=== PATIENT | male | born 1980 | race Caucasian/White ===

== ENCOUNTER 2019-08-16 15:33 | Outpatient (CLI) | payer MEDICAID, SELFPAY ==
--- NOTE | 2019-08-16 | XR_ITS ---
WS: [id number] SACRUM AND COCCYX TECHNIQUE: AP angled and lateral views. HISTORY: SACROCOCCYGEAL PAIN COMPARISON: 06/14/2014 Bone island LEFT ilium. No fracture or malalignment. Visualized bony structures are unremarkable. XR/XR sacrum coccyx min 2V [id number] IMPRESSION: Negative sacrum and coccyx.
== END 2019-08-16 15:34 | disposition home or self-care (01) ==
LOC: RADOUTREAD 08-17 07:29
PROVIDERS: Family Provider Physician Assistant; Visit Provider Nurse Practitioner Family
DX: M53.3 Sacrococcygeal disorders, not elsewhere classified (principal)

== ENCOUNTER 2019-08-23 09:47 | Outpatient (CLI) | payer MEDICAID, SELFPAY ==
--- NOTE | 2019-08-23 | XR_ITS ---
WS: [id number] LUMBAR SPINE: 6 VIEWS TECHNIQUE: AP, lateral, and L5-S1 spot. Lateral views in neutral, flexion and extension. HISTORY: SCIATICA LEFT SIDE COMPARISON: 06/14/2014 5 lumbar type vertebral bodies. Normal lumbar alignment. Small endplate osteophyte at L5. With flexio n and extension there is no instability. Mild disc space narrowing at L5-S1. SI joints are normal. No soft tissue abnormalities. XR/XR lumbar spine min 4V [id number] IMPRESSION: 1. No lumbar spine instability. 2. Mild spondylosis at L5-S1.
== END 2019-08-23 09:48 | disposition home or self-care (01) ==
PROVIDERS: Family Provider Physician Assistant; Visit Provider Physician Assistant
DX: M54.32 Sciatica, left side (principal)

== ENCOUNTER 2021-03-08 15:53 | Outpatient (CLI) | payer MEDICAID, SELFPAY ==
--- NOTE | 2021-03-08 14:30 | XRR_ITS ---
PROCEDURE INFORMATION: Exam: XR Abdomen Exam date and time: 03/08/2021 2:30 PM Age: 40 years old Clinical indication: Condition or disease; Kidney or ureter condition; Calculus (stone) in kidney; Additional info: Kidney stones TECHNIQUE: Imaging protocol: XR of the abdomen. Views: Frontal supine view of the abdomen. 1 View. COMPARISON: CR XR abdomen min 2V [id number] 02/26/2021 11:37 AM FINDINGS: Gastrointestinal tract: Normal. No bowel dilation. Bones/joints: Unremarkable. Other findings: No radiographic evidence of nephrolithiasis. XR/XR KUB [id number] IMPRESSION: 1. No acute findings. 2. No radiographic evidence of nephrolithiasis.
== END 2021-03-08 15:54 | disposition home or self-care (01) ==
LOC: RAD 15:56
PROVIDERS: PCP Physician Assistant; Visit Provider Urology
DX: N20.0 Calculus of kidney (principal)
CPT/HCPCS: 74018; 81003; 87086

== ENCOUNTER 2021-03-12 08:02 | Outpatient (CLI) | payer MEDICAID, SELFPAY ==
--- NOTE | 2021-03-12 08:00 | CT_ITS ---
WS: [id number] CT ABDOMEN PELVIS TECHNIQUE: Noncontrast CT of the abdomen and pelvis with coronal and sagittal reformatted images. CLINICAL INFORMATION: KIDNEY STONE COMPARISON: CTA chest and CT abdomen pelvis May 2018 DLP: 2294.[address] scans at [facility] use at least one of these dose optimization techniques: automat ed exposure control; mA and/or kV adjustment per patient size (includes targeted exams where dose is matched to clinical indication); or iterative reconstruction. FINDINGS: Previously described left UVJ calculus has resolved. No hydronephrosis in the left kidney. Left urete r is decompressed. A few tiny nonobstructing left calyceal tip calculi. No hydronephrosis in right kidney. Right ureter is decompressed. A few tiny right nonobstructing cristian ceal tip calculi. Lung bases are well aerated. Normal noncontrast liver. Normal noncontrast gallbladder. Adrenal glands are normal. Noncontrast spleen is normal. Food products in the distended stomach. No evidence of sma ll or large bowel obstruction. Noncontrast pancreas appears normal. Normal caliber abdominal aorta. Normal sigmoid colon. No free fl uid in the abdomen or pelvis. No abdominal or pelvic lymphadenopathy. Tiny fat-containing umbilical h ernia. CT/CT kidney stone [id number] IMPRESSION: 1. No obstructing renal or ureteral calculi. 2. Previously described left UVJ calculus has resolved. 3. A few tiny nonobstructing calyceal tip calculi bilaterally. 4. Mild hepatomegaly. 5. No evidence of small or large bowel obstruction. 6. No other significant findings.
== END 2021-03-12 08:03 | disposition home or self-care (01) ==
LOC: RAD 08:04
PROVIDERS: PCP Physician Assistant; Visit Provider Nurse Practitioner Family
DX: N20.0 Calculus of kidney (principal); R16.0 Hepatomegaly, not elsewhere classified
CPT/HCPCS: 74176; 81003

== ENCOUNTER 2021-09-04 12:12 | Outpatient (CLI) | payer MEDICAID, SELFPAY ==
[2021-09-04 12:45] VITALS: BMI 38.4
--- NOTE | 2021-09-04 12:46 | ECG_ITS ---
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 Interpretive Statements NAME OF STUDY: TREADMILL STRESS TEST INDICATION: Dyspnea on Exertion Baseline blood pressure of 136/92 mm Hg, heart rate of 77 beats per minute and oxygen saturation 97%. EKG showed normal sinus rhythm, normal axis with normal ST-Ts. The patient exercised for 6 minutes 42 seconds on a standard Baltazar protocol. Patient attained a maximum heart rate of 140 beats per minute(78% of the maximum predicted heart rate) with a blood pressure at the peak exercise of 168/89 mm Hg and oxygen saturation 97%. The EKG at the peak exercise revealed sinus tachycardia with no significant ST-T wave changes. Patient did not have any chest pain or any significant arrhythmis with the exercise During the recovery phase, there were no new changes. Blood pressure at the end of the recovery phase was 148/85 mm Hg with a heart rate of 98 beats per minute and oxygen saturation 97%. CONCLUSION: 1. Normal EKG response to treadmill exercise. 2. No exercise-induced chest pain or cardiac arrhythmia. 3. Excellent exercise tolerance, attained a maximum of 10.2 METs. Maximum VO2 of 35.7 mL/kg/min. 4. Baseline hypertension with normal response to exercise. 5. Garland treadmill score of ~7 suggestive of low risk. 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 [id number]
[2021-09-04 13:58] VITALS: BP 148/85; PULSE 98
== END 2021-09-04 12:13 | disposition home or self-care (01) ==
LOC: CDL 12:13
PROVIDERS: PCP Physician Assistant; Visit Provider Physician Assistant
DX: R06.00 Dyspnea, unspecified (principal); R06.02 Shortness of breath
CPT/HCPCS: 93017

== ENCOUNTER → 2021-10-31 15:37 | Outpatient (BNVA) | payer MEDICAID, SELFPAY | PROVIDERS: PCP Physician Assistant; Referring Provider Physician Assistant; Visit Provider Specialist | DX: G56.12 Other lesions of median nerve, left upper limb (principal); M62.89 Other specified disorders of muscle | CPT/HCPCS: 95909 ==

== ENCOUNTER 2022-07-26 09:54 | Outpatient (CLI) | payer MEDICAID, SELFPAY ==
--- NOTE | 2022-07-26 11:45 | MR_ITS ---
WS: [id number] MRI CERVICAL SPINE NONCONTRAST TECHNIQUE: Sagittal T1, T2 and STIR imaging. Axial T2, gradient, and fiesta imaging. CLINICAL INFORMATION: G56.12 - Other lesions of median nerve, left upper limb COMPARISON: 2008 FINDINGS: Straightening of the normal cervical lordosis. Mild cervical curve. Cord signal is normal. Mild spond ylitic changes slightly progressed compared to 2008. Mild disc bulging C5-C6 and C6-C7. C2-C3: Normal. C3-C4: Mild disc bulging with slight effacement of ventral thecal sac. Mild facet arthropathy. Mild R IGHT and no significant LEFT foraminal narrowing. Spinal canal is patent. C4-C5: Mild facet arthropathy. Spinal canal and foramen are patent. C5-C6: Minimal disc bulging. Mild facet arthropathy. Spinal canal and foramen are patent. C6-C7: Shallow central disc protrusion. Mild bilateral foraminal narrowing. Mild facet arthropathy. S ashutosh canal is patent. C7-T1: No significant disc bulging. Spinal canal and foramen are patent. Visualized brain stem structures: Normal. Prevertebral soft tissues: Normal. MR/MR cervical spin wo con* [id number] IMPRESSION: 1. Straightening of the normal cervical lordosis. Cord signal is normal. 2. Mild bony foraminal narrowing RIGHT C3-C4, and bilateral C6-C7. 3. Mild facet arthropathy C3-C4 C4-C5 and C5-C6. 4. No other acute findings.
== END 2022-07-26 09:55 | disposition home or self-care (01) ==
LOC: RAD 09:55
PROVIDERS: PCP Physician Assistant; Visit Provider Specialist
DX: G56.12 Other lesions of median nerve, left upper limb (principal); G43.711 Chronic migraine without aura, intractable, with status migrainosus; M47.812 Spondylosis without myelopathy or radiculopathy, cervical region
CPT/HCPCS: 72141

== ENCOUNTER 2023-10-21 14:51 | Outpatient (CLI) | payer MEDICAID, SELFPAY ==
--- NOTE | 2023-10-21 14:58 | CT_ITS ---
WS: [id number] CT NECK TECHNIQUE: Contrast-enhanced CT of the neck with coronal and sagittal reformatted images. CLINICAL INFORMATION: MASS OF NECK COMPARISON: None. DLP: 281.[address] scans at [facility] use at least one of these dose optimization techniques: automated e xposure control; mA and/or kV adjustment per patient size (includes targeted exams where dose is matc hed to clinical indication); or iterative reconstruction. FINDINGS: Mild soft tissue thickening and irregularity involving the aryepiglottic folds and posterior wall of the hypopharynx at the level of the arytenoid cartilage. Respiratory artifact degrades images in thi s area. Recommend further evaluation with direct visualization. Otherwise no evidence of supraglottic or glottic mass. Parotid glands are normal. Normal submandibular glands. Normal posterior nasopharynx. Normal paraphar yngeal fat. Paranasal sinuses and mastoid air cells are well aerated. Normal parapharyngeal fat. Lung apices are well aerated. Straightening of the normal cervical lordosis. No cervical lymphadenopathy. No evidence of cystic or solid neck mass. IMPRESSION: 1. Normal salivary glands. 2. No cervical lymphadenopathy. 3. Soft tissue thickening at the level of the aryepiglottic folds and posterior wall of the hypophar ynx at the arytenoid cartilage. Recommend endoscopy to evaluate for polypoid lesion in this area. Primo e images at this level are degraded due to beam hardening artifact.
[2023-10-21] MEDS: iohexol 350 mg/mL 500 mL Btl (per mL) IV (15:31)
== END 2023-10-21 14:52 | disposition home or self-care (01) ==
LOC: RAD 14:52
PROVIDERS: PCP Physician Assistant; Visit Provider Electrodiagnostic Medicine
DX: R22.1 Localized swelling, mass and lump, neck (principal); R93.89 Abnormal findings on diagnostic imaging of other specified body structures
CPT/HCPCS: 70491; Q9967

== ENCOUNTER 2023-12-31 09:09 | Outpatient (CLI) | payer MEDICAID, SELFPAY ==
--- NOTE | 2023-12-31 09:12 | MR_ITS ---
WS: [id number] MRI NECK WITH AND WITHOUT CONTRAST. COMPARISON: Neck CT 10/20/2013. Multiplanar, multisequence imaging is performed with and without contrast. MultiHance 20 mL IV. History: Sore throat, feeling of lump in throat for years. Recently described mass and heterogeneity near the aryepiglottic folds at the level of the thyroid ca rtilage is no longer present. There is a symmetric appearance of the airway. The larynx and subglotti c airway is normal. Aryepiglottic folds and vocal cords are normal. There is no area of abnormal enha ncement. The oropharynx and nasopharynx are negative. The entire parapharyngeal soft tissues are not included on the postcontrast evaluation. No cervical chain adenopathy. No central cervical stenosis. MR/MR orbit face neck wo/w* [id number] IMPRESSION: 1. Previously described soft tissue mass at the level of the aryepiglottic fol ds is not identified by MRI. Symmetric appearance of the larynx and subglottic airway. No mass or abnormal enhancement. For confirmation direct visualization may be of benefit. 2. No cervical chain adenopathy.
[2023-12-31] MEDS: gadobenate dimeglumine 20 mL vial IV (10:11)
== END 2023-12-31 09:10 | disposition home or self-care (01) ==
LOC: RAD 09:09
PROVIDERS: PCP Physician Assistant; Visit Provider Specialist
DX: D37.09 Neoplasm of uncertain behavior of other specified sites of the oral cavity (principal)
CPT/HCPCS: 70543; A9577

== ENCOUNTER 2025-03-01 15:33 | Emergency (ER) | payer MEDICAID, SELFPAY ==
[2025-03-01 15:35] VITALS: BP 124/74; PULSE 68; TEMP 36.9; O2SAT 98; BMI 27.1
--- OUTSIDE RECORDS SUMMARY | 2025-03-01 15:37 | XMS_ITS | Patient Health Record ---
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 Name Role Phone Marci Lobo Primary Care Provider UnavailMagaly Ureña Unavailable Allergies Allergen (clinical drug ingredient) Drug/Non Drug Allergy documented on EMR Reaction Allergy Type Onset Date Status Flexeril restless legs Drug Allergy Act nolberto gabapentin Gabapentin memory Drug Allergy Activ e Results Component Value Reference Range Flag Notes Urine Confirmation Panel (in strument) - [id number] Reviewed date:02/23/2025 10:46:36 AM Interpretation: Performing Lab: Notes/Report: 6-Acetylmorphine 0 <6 ng/mL N This suhail t was developed and its performance characteristics determined by [facility]. It has not been cleared or approved by the U.S. Food and Drug Administration. 7-Aminoclonazepam 0 <60 ng/mL N This te st was developed and its performance characteristics determined by [facility]. It has not been cleared or approved by the U.S. Food and Drug Administration. Alprazolam 0 <60 ng/mL N This test was developed and its performance characteristics determined by [facility]. It has not been cleared or approved by the U.S. Food and Drug Administration. Amphetamine 0 <75 ng/mL N This test was developed and its performance characteristics determined by [facility]. It has not been cleared or approved by the U.S. Food and Drug Administration. aOH-Alprazolam 0 <60 ng/mL N This test was developed and its performance characteristics determined by [facility]. It has not been cleared or approved by the U.S. Food and Drug Administration. Buprenorphine 1.0 <7.5 ng/mL N This test w as developed and its performance characteristics determined by [facility]. It has not been cleared or approved by the U.S. Food and Drug Administration. Norbuprenorphine 0.0 <37.5 ng/mL N This te st was developed and its performance characteristics determined by [facility]. It has not been cleared or approved by the U.S. Food and Drug Administration. Carisoprodol 0 <75 ng/mL N This test wa s developed and its performance characteristics determined by [facility]. It has not been cleared or approved by the U.S. Food and Drug Administration. Codeine 0 <75 ng/mL N This test was developed and its performance characteristics determined by [facility]. It has not been cleared or approved by the U.S. Food and Drug Administration. EDDP 0 <75 ng/mL N This test was developed and its performance characteristics determined by [facility]. It has not been cleared or approved by the U.S. Food and Drug Administration. Fentanyl 0 <6 ng/mL N This test was developed and its performance characteristics determined by [facility]. It has not been cleared or approved by the U.S. Food and Drug Administration. Hydrocodone 1 <75 ng/mL N This test was developed and its performance characteristics determined by [facility]. It has not been cleared or approved by the U.S. Food and Drug Administration. Hydromorphone 0 <75 ng/mL N This test w as developed and its performance characteristics determined by [facility]. It has not been cleared or approved by the U.S. Food and Drug Administration. Lorazepam 0 <60 ng/mL N This test was developed and its performance characteristics determined by [facility]. It has not been cleared or approved by the U.S. Food and Drug Administration. MDMA 60 <75 ng/mL N This test was developed and its performance characteristics determined by [facility]. It has not been cleared or approved by the U.S. Food and Drug Administration. Meperidine 0.0 <37.5 ng/mL N This test was developed and its performance characteristics determined by [facility]. It has not been cleared or approved by the U.S. Food and Drug Administration. Meprobamate 0 <75 ng/mL N This test was developed and its performance characteristics determined by [facility]. It has not been cleared or approved by the U.S. Food and Drug Administration. Methamphetamine 0 <75 ng/mL N This test was developed and its performance characteristics determined by [facility]. It has not been cleared or approved by the U.S. Food and Drug Administration. Methadone 0 <75 ng/mL N This test was developed and its performance characteristics determined by [facility]. It has not been cleared or approved by the U.S. Food and Drug Administration. Morphine 0 <75 ng/mL N This test was developed and its performance characteristics determined by [facility]. It has not been cleared or approved by the U.S. Food and Drug Administration. Nordiazepam 0 <60 ng/mL N This test was developed and its performance characteristics determined by [facility]. It has not been cleared or approved by the U.S. Food and Drug Administration. Norfentanyl 0 <6 ng/mL N This test was developed and its performance characteristics determined by [facility]. It has not been cleared or approved by the U.S. Food and Drug Administration. Normeperidine 0.0 <37.5 ng/mL N This test was developed and its performance characteristics determined by [facility]. It has not been cleared or approved by the U.S. Food and Drug Administration. O-desmethyltramadol 1 <75 ng/mL N This test was developed and its performance characteristics determined by [facility]. It has not been cleared or approved by the U.S. Food and Drug Administration. Oxazepam 0 <60 ng/mL N This test was developed and its performance characteristics determined by [facility]. It has not been cleared or approved by the U.S. Food and Drug Administration. Oxycodone 0.0 <37.5 ng/mL N This test was developed and its performance characteristics determined by [facility]. It has not been cleared or approved by the U.S. Food and Drug Administration. Oxymorphone 0 <75 ng/mL N This test was developed and its performance characteristics determined by [facility]. It has not been cleared or approved by the U.S. Food and Drug Administration. Phencyclidine 0.0 <7.5 ng/mL N This test w as developed and its performance characteristics determined by [facility]. It has not been cleared or approved by the U.S. Food and Drug Administration. Tapentadol 0.0 <37.5 ng/mL N This test was developed and its performance characteristics determined by [facility]. It has not been cleared or approved by the U.S. Food and Drug Administration. Temazepam 36 <60 ng/mL N This test was developed and its performance characteristics determined by [facility]. It has not been cleared or approved by the U.S. Food and Drug Administration. Tramadol 0 <75 ng/mL N This test was developed and its performance characteristics determined by [facility]. It has not been cleared or approved by the U.S. Food and Drug Administration. Norhydrocodone 0 <75 ng/mL N This test was developed and its performance characteristics determined by [facility]. It has not been cleared or approved by the U.S. Food and Drug Administration. Noroxycodone 0 <38 ng/mL N This test wa s developed and its performance characteristics determined by [facility]. It has not been cleared or approved by the U.S. Food and Drug Administration. Pregabalin 0 <225 ng/mL N This test was developed and its performance characteristics determined by [facility]. It has not been cleared or approved by the U.S. Food and Drug Administration. Gabapentin 1 <225 ng/mL N This test was developed and its performance characteristics determined by [facility]. It has not been cleared or approved by the U.S. Food and Drug Administration. Benzoylecgonine 0.0 <37.5 ng/mL N This suhail t was developed and its performance characteristics determined by [facility]. It has not been cleared or approved by the U.S. Food and Drug Administration. 4-Hydroxy Xylazine 0 <25 ng/mL N This t est was developed and its performance characteristics determined by [facility]. It has not been cleared or approved by the U.S. Food and Drug Administration. 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 Referred Organization [facility] Referred Provider Jeremiah Phillips Referred Address [address],[facility],[place],[address], Referred Provider Specialty Pain Medicin e General Notes Chuyita Menjivar 2024 02:16:42 PM >Scheduled Referral Priority Routine Medications Medication SIG (Take, Route, Frequency, Duration) Notes Start Date End Date Status traMADol HCl 50 MG Tablet 1 tab Orally every 4-6 hours; Duration: 7 days As needed not to exceed 2 tabs per day fill 02/16/25 02/17/2025 Active Social History Tobacco Use: Social History Observation Description Date Details (start date - stop date) Current Smoker NA - NA Social History Tobacco Use: Social Info Question Answer Notes Tobacco Control (Standard) Tobacco use: Current smoker How many cigarettes a day do you smoke? 6-10 Additional Details Category Social Info Options Details Miscellaneous: Sexually active: yes Sexual abuse: no Drugs/Alcohol: Do you smoke marijuana? Ad mits Do you drink alcohol? No Problems Problem Type SNOMED Code ICD Code Onset Dates Problem Status W/U Status Risk Notes Problem Chronic pain syndrome (816665125) Chronic pain syndrome (G89.4) Active confirmed Problem Lumbosacral spondylosis without myelopathy (40231944) Spondylosis of lumbosacral region without myelopathy or radiculopathy (M47.817) Active confirmed Problem Myalgia (33228942) Myalgia (M79.10) Active confirmed Problem Chronic pain (33849745) Chronic pain (G89.29) Active confirmed Problem Lumbosacral radiculopathy (9806155) Lumbosacral radiculopathy (M54.17) Active confirmed Problem Lumbosacral spondylosis (558471456) Lumbosacral spondylosis (M47.817) Active confirmed Encounters Encounter Location Date Provider Diagnosis [facility] [address] [place] [address] 02/16/2025 Magaly Pineda e Chronic pain syndrome G89.4 ; Lumbosacral spondylosis M47.817 ; Myalgia M79.10 and Admission for long-term opiate use Z79.891 Assessments Encounter Date Diagnosis (ICD Code) Assessment Notes Treatment Notes Treatment Clinical Notes Section Notes 02/16/2025 Chronic pain syndrome (ICD-10 - G89.4) Mr. Medrano is a gentleman with thoracic spondylosis and upper lumbar spine spondylosis mediated pain as well as myalgia mediated pain. He has trialed and failed every anti-inflammator y available on the market. He is not interested in muscle relaxers. In the past he would utilize tramadol with some relief of his symptoms in order for him to be able to work and afford to take care of his children and now grandchildren. I discussed with him trialing diagnostic medial branch blocks at the bilateral T12/L1, L1/L2. He politely and adamantly declined. I have provided him a home exercise program for his thoracic lumbosacral spondylosis. We will trial Tramadol 50mg 7 days worth. I'll call to see if they have any side effects on it then we could prescribe the remaining 23 days worth. I'll see him back in 1 month for reevaluation of his current regimen. PDMP reviewed with no untoward events. Will obtain a UDS confirmation today as part of his new patient evaluation. 02/16/2025 Lumbosacral spondylosis (ICD-10 - M47.817) 02/16/2025 Myalgia (ICD-10 - M79.10) 02/16/2025 Admission for long-term opiate use (ICD-10 - Z79.891) 02/16/2025 Other HEP low back with log given and explained to pt I, Kera Campo, am scribing for Dr. Sanchez. I, Dr. Sanchez, personally performed the services described in this documentation, as scribed by Kera Campo, and it is both accurate and complete. Plan Of Treatment Next Appt Details Provider Name:Dee Dee maritnez, 03/16/2025 09:00:00 AM, [address] [place], [address], Insurance Providers Payer Name Payer Address Payer Phone Subscriber Number Group Number Insured Name Patient Relationship to Insured Coverage Start Date Coverage End Date Home [facility] Medicaid Replacement [address] [place] [phone] [id number] Sridhar Medrano Self - patient is the insured Medical (General) History Medical History History ICD Code asthma bronchitis migraine headaches Depression Arthritis constipation kidney stones Surgical History Surgery Date(Month/Year) nerve surgery
--- OUTSIDE RECORDS SUMMARY | 2025-03-01 15:37 | XMS_ITS | Data Portability ---
Author Organization ALLI Hardeep Fong [facility], [place], [facility] Address [address] [facility] [facility] [address] [place] [address] Care Team Providers Care Optometric Tech Name Role Phone MARCI CASEY Primary Care Provider Unavailabl e Assessment No assessment recorded. Plan of Treatment Reminders Order Date Submit Date Provider Last Modified By Organization Details Last Modified Time Details Appointments ACUTE VISIT 2024 02:40P M WALK-IN Not available Not available Not available OFFICE VISIT 20 2024 01:20P M MARCI CASEY PA-C Not available Not available Not available Lab None recorded. Referral pain managemen t referral [email or web address] [place] [address], [address] [place] [address], [id number], 02/02/2025 11:19:16 Procedures None recorded. Surgeries None recorded. Imaging MRI, lumbar spine, w/o contrast [address] Imaging Orders, [address] [place], [address], 01/25/2025 10:48:27 XR, lumbosacr al spine, 2 or 3 view [facility] [address] [place] [address], [phone], 01/07/2025 15:34:26 XR, thoracic spine, 3 view 2024 025 [email or web address] [facility] ([facility]), [address] [place], [address], 01/07/2025 15:36:21 Medication Orders baclofen 10 mg tablet 2024 025 [id number], [address], [address], [place], [address], 01/23/2025 05:01:29 celecoxib 200 mg capsule 2024 025 [id number], [address], [address], [place], [address], 01/27/2025 05:01:44 meloxicam 15 mg tablet 2024 025 [id number], [address], [facility] [address], [address], 01/14/2025 13:31:01 tizanidin e 4 mg tablet 2024 025 [id number], [address], [facility] [address], [place], [address], 01/06/2025 14:30:16 cetirizin e 10 mg tablet 2024 025 [id number], [address], [facility] [address], [address], 12/01/2024 17:03:24 fluticaso ne propionat e 50 mcg/actua tion nasal spray,randy penon 2024 025 [id number], [address], [address], [place], [address], 12/01/2024 17:03:24 benzonata te 200 mg capsule 2024 025 [id number], [address] [facility] [address], [place], [address], 12/30/2024 17:13:38 Patient TargetsNo targets recorded. Patient InstructionsNo instructions recorded. Reason for Referral Pain Management Referral for Chronic primary low back pain Referring Physician: Marci Casey, Family Medicine, Encounter Date: 01/20/2025 Results Created Date Observation Date Name Description Value Unit Range Abnormal Flag Note LastModifiedBy Organization Detail LastModifiedTime 11/05/1911/05/2024 TESTO STERO NE, TOTAL , MALES (ADUL T), IA testosterone , total, males (adult), ia 241 NG/dL 250-82 7 low In hypog onada l males , Testo stero ne, Total , LC/MS /MS, is the recom blaise d assay due to the dimin ished accur acy of immun oassa y at level s below 250 ng/dL . This test code (1598 3) must be colle cted in a red-t op tube with no gel. Not Available [facility] [address] [place], [address], 11/05/2024 07:17:45 01/08/20 25 01/06/2025 XR, lumbo sacra l spine , 2 or 3 view No observ ation record ed. [email or web address] [facility] [address] [place], [address], 01/11/2025 13:41:45 01/08/2001/06/2025 XR, thora cic spine , 3 view No observ ation record ed. [email or web address] [facility] [address] [place], [address], 01/11/2025 09:29:42 Result Notes None recorded. Problems Name Problem SNOMED Code Status Onset Date Resolution Date Notes Provider Name and Address Organization Details Recorded Time Gastroeso phageal reflux disease 921717510 Active 2022 GERD (GASTROES OPHAGEAL REFLUX DISEASE); Recorded 3:54PM by Marci Casey, PA-C, Office Visit; Promoted; acuity set as *; ISABEL FOWLER null, [facility] 5 21:20:00 Dyspnea 129462392 Active 2022 DYSPNEA ON EXERTION; Recorded 3 8:02AM by Isabel Fowler LPN, Office Visit; Promoted; acuity set as *; [facility] [place] 21:19:50 Severe obesity 508264530641 04 Active 2022 OBESITY, MORBID, BMI 40.0-49.9 ; Recorded 3 8:02AM by Isabel Fowler LPN, Office Visit; Promoted; acuity set as *; [facility] [place], [facility]oo 21:20:23 Hyperlipi demia 74501167 Active 2022 HYPERLIPI DEMIA; Recorded 3 8:52AM by Chasity Dixon, Lab Only; Promoted; acuity set as *; ISABEL villatoro, [facility] 5 21:20:07 Depressiv e disorder 43648413 Active 2022 [facility] [place] 5 18:27:52 Male hypogonad ism 42162708 Active 2022 ISABEL FOWLER null, [facility] 5 21:20:13 Hiatal hernia 82551610 Active 2023 [facility] [place] 21:20:03 Cigarette smoker 84942526 Active 2023 [facility] [place] 21:19:42 Chronic thoracic back pain 080748185013 103 Active 2024 Amor Krishnan MD [address] [place] [address], [phone], [facility], LMooLMooCMoo 17:34:01 Increased blood pressure 13905771 Active 2024 Amor Krishnan MD [address] [place] [address], [phone], [facility], LarissaLMooCMoo 17:34:33 Paroxysma l tachycard ia 19694596 Active 2024 Amor Krishnan MD [address] [place] [address], [phone], [facility], LarissaLMooCMoo 10:34:05 Problem Notes None recorded. Procedures Surgical History Date Name Laterality Status Provider Name and Address Organization Details Recorded Time procedure on elbow completed [facility] 04/13/2024 15:50:09 kidney stone analysis completed [facility], LMooLMooCMoo 04/13/2024 15:50:13 Imaging Results None recorded. Procedure Notes None recorded. Medical Equipment None Reported. Allergies Allergen ID Allergen Name Allergen Category Reaction Reaction Severity Criticality Documentation Date Start Date Code Code System Note Provider Name and Address Organization Details Recorded Time 2126 cyclobenz aprine hydrochlo ride medicatio n myalgias (muscle pain) moderate low 11/26/2022 36808 RxNorm restl ess leg syndr ome [facility], L.L[facility]oo 4 15:49:07 10561 Benadryl medicatio n Not available Not available Not available 03/01/202588233 7 RxNorm MEGHA SERA [facility], L.L[facility]oo 5 15:52:00 Medications Name Sig Start Date Stop Date Status Note LastModified by Organization Details LastModified Time celecoxib 200 mg capsule Take 1 capsule twice a day by oral route for 14 days. 01/27 completed Not Available Not Available Not Available atorvasta tin 40 mg tablet TAKE 1 TABLET BY MOUTH EVERY DAY active Not Available Not Available No t Available promethaz ine-DM 6.25 mg-15 mg/5 mL oral syrup TAKE 10MLS BY MOUTH EVERY 6 HOURS NEEDED FOR COUGH 11/26 completed Not Available Not Available Not Available venlafaxi ne ER 75 mg capsule,e xtended release 24 hr TAKE 1 CAPSULE BY MOUTH EVERY DAY 11/06 completed Not Available Not Available Not Available atorvasta tin 20 mg tablet TAKE 1 TABLET BY MOUTH EVERY DAY 10/22 completed Not Available Not Available Not Available tizanidin e 2 mg tablet TAKE 1 TABLET BY MOUTH THREE TIMES A DAY NEEDED 01/07 completed Not Available Not Available Not Available cetirizin e 10 mg tablet TAKE 1 TABLET BY MOUTH EVERY DAY 2024 active Not Available Not Available Not Avai lable azithromy brenda 250 mg tablet TAKE 2 TABLETS (500 MG) BY ORAL ROUTE ONCE DAILY FOR 1 DAY THEN 1 TABLET (250 MG) BY ORAL ROUTE ONCE DAILY FOR 4 DAYS 06/03 completed Not Available Not Available Not Available tizanidin e 4 mg tablet TAKE 1 TABLET BY MOUTH EVERY 6 HOURS 01/06 completed Not Available Not Available Not Available fluconazo le 150 mg tablet TAKE 1 TABLET BY MOUTH FOR 1 DAY 09/15 completed Not Available Not Available Not Available benzonata te 200 mg capsule TAKE 1 CAPSULE BY MOUTH THREE TIMES A DAY NEEDED FOR COUGH 12/30 completed Not Available Not Available Not Available chlorzoxa zone 500 mg tablet 1/2 (ONE HALF) TABLET BY MOUTH THREE TIMES DAILY, NEEDED 11/26 completed Not Available Not Available Not Available meloxicam 15 mg tablet TAKE 1 TABLET BY MOUTH EVERY DAY FOR 14 DAYS 01/14 completed Not Available Not Available Not Available prednison e 20 mg tablet TAKE 2 TABLETS BY MOUTH EVERY DAY FOR 6 DAYS 04/20 completed Not Available Not Available Not Available venlafaxi ne ER 150 mg capsule,e xtended release 24 hr TAKE 1 CAPSULE BY MOUTH EVERY DAY 11/06 completed Not Available Not Available Not Available sulfameth oxazole 800 mg-trimet hoprim 160 mg tablet TAKE 1 TABLET BY MOUTH EVERY 12 HOURS FOR 7 DAYS 07/01 completed Not Available Not Available Not Available omeprazol e 40 mg capsule,d elayed release TAKE 1 CAPSULE BY MOUTH EVERY DAY active Not Available Not Available No t Available amoxicill in 875 mg tablet TAKE 1 TABLET BY MOUTH TWICE A DAY FOR 10 DAYS 11/13 completed Not Available Not Available Not Available famotidin e 20 mg tablet TAKE 1 TABLET BY MOUTH EVERYDAY AT BEDTIME active Not Available Not Available No t Available baclofen 10 mg tablet Take 1 tablet 3 times a day by oral route as needed for 10 days. 01/23 completed Not Available Not Available Not Available clotrimaz ole-betam ethasone 1 %-0.05 % topical cream APPLY TO AFFECTED AREA TWICE A DAY 11/26 completed Not Available Not Available Not Available polymyxin B sulfate 10,000 unit-trim ethoprim 1 mg/mL eye drops INSTILL 1 DROP INTO AFFECTED EYE(S) BY OPHTHALM IC ROUTE EVERY 6 HOURS 03/19 completed Not Available Not Available Not Available testoster one cypionate 200 mg/mL intramusc ular oil INJECT 0.5 ML EVERY 2 WEEKS BY INTRAMUS CULAR ROUTE FOR 28 DAYS. active Not Available Not Available No t Available BD Luer-Joce Syringe 3 mL 21 gauge x 1 1/2 FOR MONTHLY USE active Not Available Not Available No t Available fluticaso ne propionat e 50 mcg/actua tion nasal spray,randy pension SPRAY 2 SPRAYS INTO EACH NOSTRIL EVERY DAY FOR 30 DAYS 2024 active Not Available Not Available Not Avai lable clotrimaz ole 1 % topical cream APPLY TO AFFECTED AREA TWICE A DAY IN THE MORNING AND IN THE EVENING 01/07 completed Not Available Not Available Not Available BD Luer-Joce Syringe 3 mL 22 x 1 1/2 FOR MONTHLY USE 2023 active Not Available Not Available Not Avai lable Ventolin HFA 90 mcg/actua tion aerosol inhaler INHALE 2 PUFFS EVERY 4 HOURS BY INHALATI ON ROUTE NEEDED 04/13 completed Not Available Not Available Not Available bupropion HCl XL 150 mg 24 hr tablet, extended release TAKE 1 TABLET BY MOUTH EVERY DAY DIRECTED 03/19 completed Not Available Not Available Not Available tizanidin e 2 mg capsule Take 1 capsule 3 times a day by oral route as needed. 01/07 completed Not Available Not Available Not Available meloxicam daily 03/19 completed vo KM/; [id number]; Recorded 04/30/20 22 12:02PM by Isabel Fowler LPN (Authori tom through Marci Casey PA-C), Office Visit; Refill Quantity : 30; Tablet; Not Available Not Available Not Available testoster one cypionate q 2 weeks 03/19 completed Recorded 10/11/19 23 2:32PM by Sridhar Francis MD, Refill Request; Refill Quantity : 1; Millilit er; Not Available Not Available Not Available fenofibra te nanocryst allized 145 mg tablet TAKE 1 TABLET BY MOUTH EVERY DAY 09/02 completed Not Available Not Available Not Available diclofena c 1 % topical gel 03/19 completed Not Available Not Available Not Available Paxlovid 300 mg (150 mg x 2)-100 mg tablets in a dose pack TAKE DIRECTED TWICE A DAY BY MOUTH FOR 5 DAYS. 03/19 completed Not Available Not Available Not Available Zepbound 10 mg/0.5 mL subcutane ous pen injector INJECT 10 MG SUBCUTAN EOUSLY ONE TIME PER WEEK FOR 28 DAYS active Not Available Not Available No t Available Zepbound 5 mg/0.5 mL subcutane ous pen injector INJECT 5 MG EVERY WEEK BY SUBCUTAN EOUS ROUTE DIRECTED FOR 28 DAYS. 12/01 completed Not Available Not Available Not Available Zepbound 2.5 mg/0.5 mL subcutane ous pen injector INJECT 2.5 MG EVERY WEEK BY SUBCUTAN EOUS ROUTE FOR 28 DAYS, FOR MORBID OBESITY. 10/29 completed Not Available Not Available Not Available Zepbound 7.5 mg/0.5 mL subcutane ous pen injector INJECT 7.5 MG SUBCUTAN EOUSLY ONE TIME PER WEEK FOR 28 DAYS 12/01 completed Not Available Not Available Not Available Vitals Date Recorded Body height Body mass index (BMI) Body weight Oxygen saturation Oxygen saturation in Arterial blood by Pulse oximetry Heart rate Respiratory rate Body temperature Systolic And Diastolic Provider Name and Address Organization Details Last Updated DateTime 5 172.72 cm 33.6 kg/m2 666567. 91 g 98 % 98 % 86 /min 16 /min 98.2 [degF] 144/78 mm[Hg] [facility] 16:15:53 Date Recorded Body height Body mass index (BMI) Body weight Oxygen saturation Oxygen saturation in Arterial blood by Pulse oximetry Heart rate Respiratory rate Body temperature Systolic And Diastolic Provider Name and Address Organization Details Last Updated DateTime 5 172.72 cm 31.9 kg/m2 99716.4 g 97 % 97 % 86 /min 16 /min 98.2 [degF] 170/100 mm[Hg] [facility] 5 17:17:08 Date Recorded Body height Body mass index (BMI) Body weight Oxygen saturation Oxygen saturation in Arterial blood by Pulse oximetry Heart rate Respiratory rate Body temperature Systolic And Diastolic Provider Name and Address Organization Details Last Updated DateTime 5 172.72 cm 31.5 kg/m2 84704.6 2 g 98 % 98 % 80 /min 18 /min 98 [degF] 120/70 mm[Hg] [facility] 14:04:22 Date Recorded Body height Body mass index (BMI) Body weight Oxygen saturation Oxygen saturation in Arterial blood by Pulse oximetry Heart rate Respiratory rate Body temperature Systolic And Diastolic Provider Name and Address Organization Details Last Updated DateTime 5 172.72 cm 30.7 kg/m2 57573.6 6 g 97 % 97 % 78 /min 18 /min 97.9 [degF] 122/70 mm[Hg] [facility] 5 10:45:48 Date Recorded Body height Body mass index (BMI) Body weight Respiratory rate Oxygen saturation Oxygen saturation in Arterial blood by Pulse oximetry Heart rate Body temperature Systolic And Diastolic Provider Name and Address Organization Details Last Updated DateTime 172.72 cm 28 kg/m2 92027.4 g 16 /min 99 % 99 % 73 /min 98.3 [degF] 120/72 mm[Hg] MEGHA ZAMORA [facility] 15:51:30 Social History Question Answer Notes LastModified by Organizat [employer] Details LastModified Time Tobacco Smoking Status Current Every Day Smoker Jannie Stevenson shauna [facility] 04/13/2024 15:50:02 What Was The Date Of Your Most Recent Tobacco Screening? 12/30/2024 [email or web address] Information not available 12/30/2024 Sex: Unknown Functional Status Question Answer Note LastModified by [employer] Details LastModified Time Do you use any illicit or recreational drugs? No Information not available 04/13/2024 What is your level of alcohol consumption? Occasional Information not available 04/13/2024 Mental Status None recorded. Family History Nothing Reported Notes:Hypertension: Denied M aternal Grandfather: Colon Cancer Maternal Grandmother: Cancer Maternal Great Uncle: Rectal Cancer Maternal Uncle: Respiratory Condition Mother: Arthritis Paternal Grandfather: Hypercholesterolemia Medical History Condition Response Coronary Artery Disease N Other N Gout N Kidney Stones N Blood Diseases N Hyperthyroidism N Breast Cancer N Blood Transfusion N Hypothyroidism N Depression N COPD N Lung Disease N Defects or Inherited Disease N Developmental or Behavioral Disorders N Breast Problem N Difficulty Swallowing N Anesthesia Complications N Anxiety Disorder N Meniere's disease N Muscle, Joint, or Bone Problems N Vision or Eye Problems N Arthritis N Polyps N Infertility N Cancer N Varicosities N Stroke N Endometriosis N Bladder or Kidney Problems N High Cholesterol Y Liver Disease N Headaches N Fibromyalgia N Kidney Disease N Allergies/Hayfever N Heart Problems N Ear or Hearing Problems N Hospitalizations N Thyroid Problems N GI Problems N ADD/ADHD N Skin Problems N Eating Disorder N Anemia N Constipation N Mental Illness N Ovarian Cancer N Diabetes N Bedwetting N Seizures/Epilepsy N Tuberculosis N Eczema N Diverticulitis N Abuse/Domestic Violence N Asthma N Reflux/GERD Y Hepatitis N Heart Disease N Pulmonary Embolism N Chronic Ear Infections N Pre-Eclampsia N Hypertension N Chicken Pox N Autism Spectrum Disorder (ASD) N Osteoporosis N Thrombophilias N Immunizations Vaccine Type Date Status Note Provider Nam e and Address Organization Details Recorded Time IPV 1980 completed MARILYN MEDRANO shauna [facility] 06/03/2023 15:14:38 IPV 1980 completed MARILYN MEDRANO shauna [facility] 06/03/2023 15:14:38 IPV 03/10/1985 completed MARILYN MEDRANO shauna [facility] 06/03/2023 15:14:38 MMR 10/14/1982 completed MARILYN SHARRON villatoro [facility] 06/03/2023 15:14:39 Tdap 11/10/2009 completed MARILYN SHARRON villatoro [facility] 06/03/2023 15:14:39 DTaP 1980 completed MARILYN SHARRON villatoro [facility] 06/03/2023 15:14:39 DTaP 10/12/1989 completed MARILYN SHARRON villatoro [facility] 06/03/2023 15:14:39 DTaP 1980 completed MARILYN SHARRON MEDRANO shauna [facility] 06/03/2023 15:14:39 DTaP 03/10/1985 completed MARILYN villatoro [facility] 06/03/2023 15:14:39 DTaP 04/20/1996 completed MARILYN villatoro [facility] 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 2840024649 11447 G56.02 Ulnar nerv e entrapment at elbow 524045131 G56.21 Pain of ri ght elbow joint 7344810486 8387225 M25.521 [id number] Amor Krishnan MD [facility] ([facility]) [address] [place] [phone] 11/26/2022 14:34:28 11/26/2022 19:21:16 Conjunctivitis 7547220 H10.9 [id number] ISELA OCHOA [facility] ([facility]) [address] [place], [place] [phone] 02/11/2023 15:11:40 02/11/2023 17:21:21 Exposure to SARS-CoV-2 847979669 Z20.822 [id number] Sandeep Boswell DO [facility] ([facility]) [address] [place] [phone] 02/18/2023 14:53:41 02/18/2023 16:38:24 Exposure to SARS-CoV-2 206187073 Z20.822 COVID-19 223790834 U07.1 Pt is covid positive here in the office today. counseled. symptoms moderate, worsening. Risk factors: smoker, obesity.I counseled the patient on diagnosis, treatment options, medication s, and expectatio ns. All questions were addressed. we will start paxolvid and prednisone . albuterol inh.Pt is to stay home and isolate for at least 5 days from when symptoms started, and then mask in public for an additional 5 days.They were instructed to call the office or come in for Follow Up with any questions, concerns, or worsening problems. [id number] Amor Krishnan MD [facility] ([facility]) [address] [place] [phone] 03/19/2023 14:26:12 03/19/2023 16:59:03 Upper respiratory infection 82645181 J06.9 [id number] Cee Kauffman MD [facility] ([facility]) [address] [place] [phone] 06/03/2023 15:05:02 06/03/2023 16:51:49 Abscess of skin and/or subcutaneous tissue 32097021 L02.91 The area was cleaned with ETOH and then 1% lidocaine with epi was injected for anesthetic . The abscess was lanced using an 11 blade. Minimal purulent material was expressed. Since the pt keeps having recurrence , he should consider complete excision. 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 Offered testing for GC/chlam and pt declined. agree since no drainage or burning with urination. V/u to use meds as directed and f/u if any new s/s develop or do not resolve. [id number] MIA MURGUIA EVENT PRODUCER [facility] ([facility]) [address] [place] [phone] 09/15/2023 16:10:32 09/15/2023 17:27:38 Postnasal discharge on posterior wall of pharynx 727004170 R09.82 Discussed with pt on use of nasal spray for next 1 month. F/u with PCP if you continue to have a FB sensation in the throat after 1 month. [id number] Sandeep Boswell DO [facility] ([facility]) [address] [place] [phone] 09/17/2023 13:39:03 09/17/2023 15:00:50 Sore throat 529285829 J02.9 Covid/ Flu/ Strep negative today. Will treat for acute pharyngiti s with abx. Mass of neck 291936501 R 22.1 lab, CT soft tissue neck, f/u with PCP 5-7 days after scan. [id number] Sandeep Boswell DO [facility] ([facility]) [address] [place] [phone] 10/27/2023 12:26:05 10/28/2023 09:37:45 Mass of neck 411293865 R22.1 CT of soft tissue of neck completed on 10/21/23 at [facility]. CT scan revealed small mass or nodule at the level of the hyoid bone on posterior hypopharyn x possibly involving the aryepiglot tis. However artifact did obscure the images.Rec ommend ENT eval with direct visualizat ion instead of EGD. counseled Hiatal hernia 66848517 K 44.9 Cigarette smoker 1075472 7 F17.210 I counseled patient on smoking risks, hazards, complicati ons, and associated illnesses. We discussed smoking cessation options. The patient will work on cutting back but is not ready to quit. We spent 4 minutes discussing this. All questions were addressed. Morbid obesity 208207955 E66.01 I counseled pt on obesity. We discussed risks and ways to loose weight. Pt will work on diet, exercise. [id number] ISELA VARGAS [facility] ([facility]) [address] [place] [phone] 11/14/2023 10:21:35 11/14/2023 10:40:39 Low back pain 719400256 M54.50 Discussed to take 400mg ibuprofen twice a day for next 5 days with food.Use tizanidine as prescribed .Apply a heating pad for 10 minutes every 2 hours while awake. Perform slow stretches 2 times a day.F/u with PCP in 4-5 days if symptoms persist or worsen. [id number] MARCI CASEY PA-C [facility] ([facility]) [address] [place] [phone] 01/05/2024 10:24:19 01/07/2024 12:13:39 Preoperative cardiovascular examination 858822440 Z01.026 [id number] MARCI CASEY PA-C [facility] ([facility]) [address] [place] [id number] 01/08/2024 10:27:09 01/16/2024 20:18:54 Ingrowing nail of toe of left foot 7238371681 6031763 L60.0 Thoracic back pain 60787 8004 M54.6 Dyspnea 209197914 R06.00 [id number] ISELA VARGAS [facility] ([facility]) [address] [place] [phone] 5 04/13/2024 15:45:24 04/15/2024 08:54:06 Low back pain 555735987 M54.50 Discussed sitting on a pillow or cushion for comfort.Ap ply a heating pad for 10 minutes every 2 hours while awake.F/u with PCP in 1-2 if symptoms persist or worsen. [id number] MARCI CASEY PA-C [facility] ([facility]) [address] [place] [address] [phone] 5 04/20/2024 09:46:26 05/02/2024 21:40:17 Low back pain [id number] M54.50 pt is improving from his acute low back/tailb one pain Hyperlipidemia [id number] E78.5 Elevated blood-pressure reading without diagnosis of hypertension [id number] R03.0 reviewed lifestyle changes . encouraged ambulatory monitoring [id number] MARCI CASEY PA-C [facility] ([facility]) [address] [place] [address] [phone] 09/02/2024 12:23:13 09/02/2024 13:38:46 Hyperlipidemia [id number] E78.5 Morbid obesity [id number] E66.01 Pt has tried and failed a 3 month at home weight loss program of counting calories and tracking food.I recommend starting a GLP1 wt lossI explained how GLP1 help to lose weight. We discussed possible SE of nausea, vomiting, bloating and constipati on. Showed how to use self injection pen. All questions were answered to satisfacti on [id number] MARCI CASEY PA-C [facility] ([facility]) [address] [place] [address] [phone] 10/28/2024 12:32:23 10/29/2024 08:19:26 Hyperlipidemia [id number] E78.5 [id number] MARCI CASEY PA-C [facility] ([facility]) [address] [place] [address] [phone] 5 10/29/2024 10:53:31 10/29/2024 12:00:07 Hyperlipidemia [id number] E78.5 Morbid obesity [id number] E66.01 Male hypogonadism [id number] 06 E29.1 [id number] ISELA BATISTA [facility] ([facility]) [address] [place] [address] [phone] 5 12/01/2024 16:09:40 12/01/2024 18:35:27 Environmental allergy [id number] Z91.09 May use meds like zyrtec and fluticason e nasal spray as needed for symptoms. Encouraged to stop smoking. Return to clinic with any new or worsening symptoms. [id number] Amor Krishnan MD [facility] ([facility]) [address] [place] [address] [phone] 12/30/2024 17:12:03 01/03/2025 08:14:07 Chronic thoracic back pain [id number] 86403 M54.6 G89.29 The patient's pain is likely musculoske letal based on exam today. Will start anti-infla mmatory with meloxicam and start a muscle relaxer to help with pain management . Encouraged stretches and exercises. Increased blood pressure [id number] I10 His blood pressure is significan tly elevated and recommend that he checks his blood pressure twice daily until he follows up with his PCP. Paroxysmal tachycardia [id number] I47.9 And episodes of significan t tachycardi a that suggest SVT. Discussed SVTs and ways to treat and when to seek emergent care. Recommend follow-up with PCP to discuss possible Holter monitor if indicated. [id number] MARCI CASEY PA-C [facility] ([facility]) [address] [place] [address] [phone] 01/06/2025 13:52:52 01/06/2025 15:04:42 Acute back pain with sciatica [id number] M54.[address] appt [facility]. Chronic th oracic back pain [id number] 92154 M54.6 G89.29 [id number] MARCI CASEY PA-C [facility] ([facility]) [address] [place] [phone] 5 01/20/2025 10:37:36 01/20/2025 12:27:07 Chronic thoracic back pain [id number] 39749 M54.6 G89.29 Chronic pr imary low back pain [id number] 7100 M54.59 G89.29 Pt has tried >6 weeks of NSAIDs and muscle relaxors. Normal T and L spine xraysHas tried and failed 6 weeks of home exercises and chiropract ic care.I feel a MRI is need to assess the discs and nerves of the L spine due to continued pain with radiation into the legs. Health Concerns Section Related Observation LastModified by Organization Detai ls LastModified Time None Recorded Concern Status LastModified by Organization Details LastModified Time None Recorded Advance Directives Directive None Recorded Payers Insurance Date Sequence Insurance Name Policy Number Policy Lin Covered Member ID Lin Member ID Guarantor Name 03/01/2025 [facility] (MEDICAID HMO) Sridhar Medrano Jr [id number] Sridhar Medrano 03/01/2025 1 [facility] (MEDICAID HMO) Sridhar Medrano Jr [id number] Sridhar Medrano 12/17/2023 1 UNSPECIFIED REMIT PAYOR Sridhar Medrano
--- NOTE | 2025-03-01 16:00 | CTR_ITS ---
PROCEDURE INFORMATION: Exam: CT Abdomen And Pelvis With Contrast Exam date and time: 03/01/2025 4:17 PM Age: 44 years old Clinical indication: Abdominal pain; Localized; Right upper quadrant (ruq); Additional info: Abd pain TECHNIQUE: Imaging protocol: Computed tomography of the abdomen and pelvis with contrast. Radiation optimization: All CT scans at this facility use at least one of these dose optimization techniques: automated exposure control; mA and/or kV adjustment per patient size (includes targeted exams where dose is matched to clinical indication); or iterative reconstruction. Contrast material: OMNIPAQUE 350; Contrast volume: 100 ml; Contrast route: INTRAVENOUS (IV); COMPARISON: CT kidney stone [id number] 03/12/2021 9:08 AM RADIATION DOSE METRICS: Total DLP (mGy-cm): 534.53 FINDINGS: Lungs: Lung bases are clear. No pleural effusion. Liver: Normal. No mass. Gallbladder and biliary ducts: Normal. No calcified stones. No ductal dilation. Pancreas: Normal. No ductal dilation. Spleen: Normal. No splenomegaly. Adrenal glands: Normal. No mass. Kidneys and ureters: Normal. No hydronephrosis. Stomach and bowel: There are multiple loops of minimally distended, fluid-filled small bowel and liquid stool is noted throughout the colon. Appendix: No evidence of appendicitis. Intraperitoneal space: Unremarkable. No free air. No significant fluid collection. Vasculature: Unremarkable. No abdominal aortic aneurysm. Lymph nodes: Unremarkable. No enlarged lymph nodes. Urinary bladder: Unremarkable as visualized. Reproductive: Unremarkable as visualized. Bones/joints: Unremarkable. No acute fracture. Soft tissues: Unremarkable. CT/CT abdomen pelvis w con* [id number] IMPRESSION: Findings suggesting acute enterocolitis
--- NOTE | 2025-03-01 16:01 | W.ED.ABDPA2 ---
HPI - Abdominal Pain General: Chief Complaint: Abdominal Pain Stated Complaint: rt mid-abd pain Time Seen by Provider: 03/01/25 15:41 Source: patient Mode of arrival: ambulatory Limitations: no limitations History of Present Illness: 44-year-old male states that he has been having right upper quadrant pain throughout the day. States been a sharp pain feels like there is a mass over his abdomen. Denies any history of surgery denies any history of hernia states worse with palpation denies any vomiting or diarrhea. Associated Symptoms: Denies chills, diarrhea, fever(s), nausea and vomiting Related Data Home Medications ?Medication ?Instructions ?Recorded ?Confirmed atorvastatin 40 mg tablet 40 mg PO DAILY 03/02/21 03/01/25 omeprazole 40 mg capsule,delayed 40 mg PO DAILY 03/02/21 03/01/25 release fenofibrate nanocrystallized 145 145 mg PO DAILY 07/03/22 03/01/25 mg tablet cetirizine 10 mg tablet 10 mg PO DAILY 03/01/25 03/01/25 famotidine 20 mg tablet (Pepcid) 20 mg PO DAILY 03/01/25 03/01/25 testosterone cypionate 200 mg/mL 0.5 mg IM Q14D 03/01/25 03/01/25 intramuscular oil tirzepatide (weight loss) 10 10 mg SUBCUT Q7D 03/01/25 03/01/25 mg/0.5 mL subcutaneous pen injector (Zepbound) tramadol 50 mg tablet See Rx Instructions .Route .COMPLEX 03/01/25 03/01/25 Allergies Allergy/AdvReac Type Severity Reaction Status Date / Time diphenhydramine (From Allergy Unknown Verified 03/01/25 15:40 Benadryl) cyclobenzaprine (From AdvReac RESTLESS Verified 03/01/25 15:40 Flexeril) LEG SYNDROME Review of Systems Const: Denies: fever(s), chills, body aches or change in appetite ENMT: Denies: throat pain or dental pain Card: Denies: chest pain Resp: Denies: dyspnea GI: Reports: abdominal pain; Denies: nausea, vomiting or diarrhea Musc: Denies: neck pain or back pain Skin/Breast: Denies: rash Neuro: Denies: headache(s) PFSH ED PFSH: Medical History Urolithiasis Family History Family/Other Cancer Grandmother Cancer STOMACH AND BREAST Diabetes Grandfather Cancer PROSTATE OR COLON? Social History Smoking and tobacco/nicotine status: current every day tobacco/nicotine user (3/4 pack a day) Alcohol intake: current Alcohol intake frequency: holidays/special occasions only Substance/Drug Use: never Marital status: Current occupational status: employed Physical Exam Const: COMMON NORMALS: no acute distress, patient oriented x3 and healthy appearing HENMT: COMMON NORMALS: normocephalic and atraumatic HEAD & SCALP: normocephalic and atraumatic Eye: COMMON NORMALS: conjunctivae normal CONJUNCTIVA: Yes conjunctivae normal Neck/C-Spine: COMMON NORMALS: full ROM and supple Chest: COMMONS NORMALS: normal inspection of the chest Resp: COMMON NORMALS: normal respiratory effort Cardio: COMMON NORMALS: regular rate, regular rhythm and No murmurs present (Cardio) RATE: regular rate RHYTHM: regular rhythm GI: COMMON NORMALS: Normal to inspection, nondistended, normoactive bowel sounds present, Soft to palpation and no masses PALPATION: Yes Soft to palpation and Yes Tenderness to palpation present (GI) Details: RUQ Extremity: COMMON NORMALS: normal to inspection and full ROM Neuro: COMMON NORMALS: patient oriented x3, moves all extremities and no focal motor deficits Psych: COMMON NORMALS: mental status grossly normal, Normal thought process present and cooperative THOUGHT PROCESS: Normal thought process present Skin: COMMON NORMALS: no rashes or lesions noted and no wounds GENERAL SKIN EXAM: no rashes or lesions noted Course Vital Signs: Vital signs: Vital Signs Temperature 98.5 F 03/01/25 15:35 Pulse Rate 66 03/01/25 16:30 Respiratory Rate 16 03/01/25 16:30 Blood Pressure 124/74 03/01/25 15:35 Pulse Oximetry 100 03/01/25 16:30 Oxygen Delivery Me thod Room Air 03/01/25 16:30 MDM - Abdominal Pain Medical Decision Making Patient presents with abdominal pain CT scan here shows no acute abnormality he does feel improved blood works normal as well he stable for discharge follow-up PCP return if worsening. Medical Records I reviewed the patient's medical records. Lab Data I reviewed the patient's lab results. 03/01/25 16:37 03/01/25 16:37 Labs/Radiology: Radiology Impressions Abdomen/Pelvis CT 03/01/25 16:00 IMPRESSION: Findings suggesting acute enterocolitis Laboratory Results WBC 8.62 10^3/uL (3.29-11.43) 03/01/25 16:37 RBC 4.49 10^6/uL (3.85-5.65) 03/01/25 16:37 Hgb 13.90 g/dL (11.27-16.99) 03/01/25 16:37 Hct 40.1 % (37-53) 03/01/25 16:37 MCV 89.3 fl (82-101) 03/01/25 16:37 MCH 31.0 pg (27-33) 03/01/25 16:37 MCHC 34.7 g/dL (30-55) 03/01/25 16:37 RDW 13.3 % (12.1-15.1) 03/01/25 16:37 Plt Count 262 10^3/cmm (157-399) 03/01/25 16:37 MPV 9.7 fL (7.4-10.4) 03/01/25 16:37 Neut % (Auto) 69.4 % 03/01/25 16:37 Lymph % (Auto) 23.4 % 03/01/25 16:37 [place] % (Auto) 5.7 % 03/01/25 16:37 Eos % (Auto) 0.7 % 03/01/25 16:37 Baso % (Auto) 0.5 % 03/01/25 16:37 Neut # (Auto) 5.98 10^3/uL (1.8-7.7) 03/01/25 16:37 Lymph # (Auto) 2.0 10^3/uL (0.8-4.8) 03/01/25 16:37 [place] # (Auto) 0.5 10^3/uL (0.2-0.9) 03/01/25 16:37 Eos # (Auto) 0.1 10^3/uL (0.0-0.8) 03/01/25 16:37 Baso # (Auto) 0.0 10^3/uL (0.0-0.1) 03/01/25 16:37 Nucleated RBC % (auto) 0 % 03/01/25 16:37 Nucleated RBCs # 0.0 /100WBC 03/01/25 16:37 Sodium 137 mmol/L (136-145) 03/01/25 16:37 Potassium 4.0 mmol/L (3.5-5.1) 03/01/25 16:37 Chloride 102 mmol/L (98-107) 03/01/25 16:37 Carbon Dioxide 23 mmol/L (22-29) 03/01/25 16:37 Anion Gap 16.0 (5-19) 03/01/25 16:37 BUN 19 mg/dL (6-20) 03/01/25 16:37 Creatinine 0.7 mg/dL (0.7-1.2) 03/01/25 16:37 GFR Calculation 122.5 mL/min (90-130) 03/01/25 16:37 Glucose 85 mg/dL (65-115) 03/01/25 16:37 Calculated Osmolality 286 mOsm/kg (285-295) 03/01/25 16:37 Calcium 9.1 mg/dL (8.5-10.5) 03/01/25 16:37 Total Bilirubin 0.4 mg/dL (0.15-1.2) 03/01/25 16:37 AST 10 U/L (0-40) 03/01/25 16:37 ALT 10 U/L (0-41) 03/01/25 16:37 Alkaline Phosphatase 65 U/L (40-130) 03/01/25 16:37 Total Protein 6.4 g/dL (6.6-8.7) L 03/01/25 16:37 Albumin 4.0 g/dL (3.5-5.2) 03/01/25 16:37 Globulin 2.4 g/dL (1.3-4.6) 03/01/25 16:37 Lipase 36 U/L (13-60) 03/01/25 16:37 Urine Color Dark yellow (Yellow) A 03/01/25 16:08 Urine Appearance Clear (CLEAR) 03/01/25 16:08 Urine pH 6.0 (5-7) 03/01/25 16:08 Ur Specific [place] 1.030 (1.005-1.030) 03/01/25 16:08 Urine Protein Negative (Negative) 03/01/25 16:08 Urine Glucose (UA) Negative (Normal) 03/01/25 16:08 Urine Ketones Trace (Negative) 03/01/25 16:08 Urine Blood Negative (Negative) 03/01/25 16:08 Urine Nitrate Negative (Negative) 03/01/25 16:08 Urine Bilirubin Negative (Negative) 03/01/25 16:08 Urine Urobilinogen 1.0 mg/dL (Negative) 03/01/25 16:08 Ur Leukocyte Esterase Negative (Negative) 03/01/25 16:08 Urine RBC 0-2 /hpf (0-2) 03/01/25 16:08 Urine WBC 0-5 /hpf (0-5) 03/01/25 16:08 Ur Squamous Epith Cells 0-5 /hpf (0-5) 03/01/25 16:08 Amorphous Sediment Not Reportable 03/01/25 16:08 Urine Bacteria None seen /hpf (NONE) 03/01/25 16:08 Hyaline Casts 0.40 /lpf 03/01/25 16:08 All radiology interpretation(s) finalized by discharge Discharge Plan Discharge Patient Disposition: Home Clinical Impression: Abdominal pain Condition: Stable Prescriptions: No Action omeprazole 40 mg capsule,delayed release(DR/EC) 40 mg PO DAILY atorvastatin 40 mg tablet 40 mg PO DAILY fenofibrate nanocrystallized 145 mg tablet 145 mg PO DAILY cetirizine 10 mg tablet 10 mg PO DAILY tramadol 50 mg tablet See Rx Instructions .ROUTE .COMPLEX Rx Instructions: TAKE 1 TABLET BY MOUTH EVERY 4-6 HRS NEEDED (MAX 2/DAY) famotidine [Pepcid] 20 mg tablet 20 mg PO DAILY testosterone cypionate 200 mg/mL oil 0.5 mg IM Q14D Zepbound 10 mg/0.5 mL pen injector 10 mg SUBCUT Q7D Discharge Orders: Discharge ED (Routine); Ordered 03/01/25 Ordered By: Sotero Pagan Referrals: Marci Casey PA [Primary Care Provider, [facility]] - 4-7 days Discharge Diet: Advance as tolerated Discharge Activity: Resume usual activity Patient Instructions: Abdominal Pain (ED) Print Language: [place] Coding Level of Care Code ED Shirt Closer for Jamal Niño
[2025-03-01] MEDS: iohexol 350 mg/mL 500 mL Btl (per mL) IV (16:21)
[2025-03-01 16:30] VITALS: PULSE 66; RESP 16; O2SAT 100
[2025-03-01 16:50] LABS: Glucose Urine UA Negative (Normal); Nitrate Urine Negative (Negative); Specific Gravity, Urine 1.030 (1.005-1.030)
[2025-03-01 16:56] LABS: Add Urine Microscopic? YES
[2025-03-01 17:00] LABS: Hematocrit 40.1 % (37-53); Hemoglobin 13.90 g/dL (11.27-16.99); Mean Corpuscular HGB Conc 34.7 g/dL (30-55); Mean Corpuscular Hemoglobin 31.0 pg (27-33); Mean Corpuscular Volume 89.3 fl (82-101); Nucleated Red Blood Cells % 0 %; Platelet Count 262 10^3/cmm (157-399); Red Blood Count 4.49 10^6/uL (3.85-5.65); White Blood Count 8.62 10^3/uL (3.29-11.43)
[2025-03-01 17:19] LABS: Alanine Aminotransferase 10 U/L (0-41); Albumin Level 4.0 g/dL (3.5-5.2); Alkaline Phosphatase 65 U/L (40-130); Anion Gap 16.0 (5-19); Aspartate Amino Transferase 10 U/L (0-40); Blood Urea Nitrogen 19 mg/dL (6-20); Calcium 9.1 mg/dL (8.5-10.5); Carbon Dioxide 23 mmol/L (22-29); Chloride 102 mmol/L (98-107); Creatinine Clr Calc Pharmacy 144.3893; Globulin 2.4 g/dL (1.3-4.6); Glucose 85 mg/dL (65-115); Lipase 36 U/L (13-60); Osmolality Calculated 286 mOsm/kg (285-295); Potassium 4.0 mmol/L (3.5-5.1); Sodium 137 mmol/L (136-145); Total Protein 6.4 g/dL (6.6-8.7)
[2025-03-01 17:35] VITALS: BP 125/87; PULSE 69; RESP 16; O2SAT 99
== END 2025-03-01 17:34 | disposition home or self-care (01) ==
PROVIDERS: Emergency Provider Emergency Medicine; PCP Physician Assistant
DX: R10.9 Unspecified abdominal pain (principal); F17.210 Nicotine dependence, cigarettes, uncomplicated
CPT/HCPCS: 36415; 74177; 80053; 81001; 83690; 85025; 99285